=== PATIENT | female | born 1960 | race Caucasian/White ===

== ENCOUNTER 2021-10-26 12:28 | Emergency (ER) | payer MEDICAID ==
[~2021-10-26] VITALS: Ht 162.6 cm; Wt 73.0 kg
[~2021-10-26 12:28] MED LIST: ATOR10TA MT; CARB200T6 PO; SERT-422 PO
[2021-10-26] MEDS ORDERED: IBUPROFEN 400MG TABLET PO ONE (13:15)
[2021-10-26] MEDS ORDERED: LIDOCAINE HCL/EPINEPHRINE 1%-EPI 1:100,000 20 ML VIAL INFIL ONE (14:30)
[2021-10-26] MEDS ORDERED: IBUP-2028 MT (15:47)
[2021-10-26 16:19] VITALS: BP 121/52
== END 2021-10-26 16:34 | disposition home or self-care (01) ==
LOC: ER 12:28
DX: N63.0 Unspecified lump in unspecified breast (principal); F31.9 Bipolar disorder, unspecified; E78.00 Pure hypercholesterolemia, unspecified; Z90.49 Acquired absence of other specified parts of digestive tract
CPT/HCPCS: 76642; 99284; J3490; Z7610